=== PATIENT | male | born 1965 | race Caucasian/White ===

== ENCOUNTER 2018-08-02 03:03 | Emergency (ER) | payer MEDICARE, OTHER ==
[2018-08-02] MEDS: IBUPROFEN 600 MG TAB PO (05:14)
[2018-08-02] MEDS: HYDROCODONE/APAP (5/325) TAB PO (05:14)
== END 2018-08-02 07:08 | disposition home or self-care (01) ==
LOC: FTE 03:03
DX: S13.9XXA Sprain of joints and ligaments of unspecified parts of neck, initial encounter (principal); V49.40XA Driver injured in collision with unspecified motor vehicles in traffic accident, initial encounter
CPT/HCPCS: 72040; 99283-25